=== PATIENT | female | born 1955 | race Caucasian/White ===

== ENCOUNTER 2020-05-04 18:15 | Inpatient (IN) ==
--- NOTE | 2020-05-04 18:38 | Emergency Department Note ---
History of Present Illness General Chief complaint: Chest Pain Time Seen by Provider: 05/04/20 18:18 Source: patient and family (Significant other who is at the bedside) Mode of arrival: EMS Limitations: no limitations History of Present Illness This patient comes in after having chest pain. At present, she has no chest pain. She said around 11:00 she had jaw pain she took some Advil felt better and then it came back and went into her chest and also arm so she took 6 baby aspirin and felt okay she went somewhere in her car but when she got home walked out of her car she said she walked about 10 steps and had severe pain that she describes as 20 out of 10 that lasted about 5 minutes. Nothing seems to make it better or worse she did take a hydrocodone it eventually got better. She has had no fall or trauma. She does have some ongoing issues with her right arm and did take prednisone and finished last week. She has some chronic back issues in the lower back. No shortness of breath associated she was diaphoretic no nausea vomiting. No radiation to her back. No recent illness. No fever or chills or COVID exposure no flulike symptoms. No history of similar Home Medications Home Medications Medication Instructions Recorded Confirmed Type diclofenac sodium 150 mg PO HS 01/25/19 05/04/20 History allopurinol 200 mg PO HS 05/04/20 05/04/20 History ibuprofen [Advil] 200 mg PO Q6H PRN 05/04/20 05/04/20 History Allergies Allergy/AdvReac Type Severity Reaction Status Date / Time No Known Allergies Allergy Unknown Verified 05/04/20 19:50 Past Med/Surg History Medical History Chronic back pain Degenerative disc disease Gout History of gastroesophageal reflux (GERD) Osteoarthritis Spinal stenosis Surgical History History of back surgery x 2; hardware present History of detached retina repair History of dilation and curettage History of left cataract surgery History of tubal ligation Family History Mother Family history of diabetes mellitus Social History Smoking Status: Current every day smoker Cigarettes Per Day: 1/2 PPD; Second Hand Exposure: No; Hx Alcohol Use: No Hx Substance Use: No Preferred Language: German Communication Ability: Effective 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 Beliefs That Will Affect Care: None Current Living Situation: Family Other Information That Helps Us Care for You: No Feels Safe at Home: Yes Safety Concerns: Feels Safe At This Time Review of Systems A total of 10 systems reviewed and were otherwise negative Physical Exam Vital Signs Vital Signs - 24 hr 05/04/20 18:20 05/04/20 18:24 05/04/20 18:26 Temperature 36.6 C Temperature Source Oral Pulse Rate 94 H 97 H 97 H Pulse Rate from SpO2 Sensor 97 H 97 H Respiratory Rate 16 20 19 Respiratory Effort / Characteristics Non-Labored Spontaneous Respiratory Depth Normal Respiratory Pattern Regular Blood Pressure 162/88 H 162/88 H Blood Pressure Mean 119 112 Pulse Oximetry 98 100 99 Oxygen Delivery Method Room Air Sepsis Recent Fever Within 48 Hours No Sepsis New/Unexplained Change in Mental Status No Sepsis Action Taken by Nursing No Action Required 05/04/20 18:30 05/04/20 18:31 05/04/20 18:32 Temperature Temperature Source Pulse Rate 100 H 92 H 92 H Pulse Rate from SpO2 Sensor 98 H 93 H 93 H Respiratory Rate 22 21 16 Respiratory Effort / Characteristics Respiratory Depth Respiratory Pattern Blood Pressure 131/78 Blood Pressure Mean 86 Pulse Oximetry 97 98 100 Oxygen Delivery Method Sepsis Recent Fever Within 48 Hours Sepsis New/Unexplained Change in Mental Status Sepsis Action Taken by Nursing 05/04/20 18:40 05/04/20 19:00 05/04/20 19:01 Temperature Temperature Source Pulse Rate 97 H 88 85 Pulse Rate from SpO2 Sensor 89 85 Respiratory Rate 20 20 10 L Respiratory Effort / Characteristics Respiratory Depth Respiratory Pattern Blood Pressure 134/84 Blood Pressure Mean 97 Pulse Oximetry 100 98 99 Oxygen Delivery Method Room Air Room Air Sepsis Recent Fever Within 48 Hours Sepsis New/Unexplained Change in Mental Status Sepsis Action Taken by Nursing 05/04/20 19:30 05/04/20 20:00 05/04/20 20:01 Temperature Temperature Source Pulse Rate 93 H 102 H 102 H Pulse Rate from SpO2 Sensor Respiratory Rate 18 21 21 Respiratory Effort / Characteristics Respiratory Depth Respiratory Pattern Blood Pressure 111/90 Blood Pressure Mean 104 Pulse Oximetry Oxygen Delivery Method Sepsis Recent Fever Within 48 Hours Sepsis New/Unexplained Change in Mental Status Sepsis Action Taken by Nursing 05/04/20 20:30 05/04/20 20:31 05/04/20 21:00 Temperature Temperature Source Pulse Rate 105 H 110 H 96 H Pulse Rate from SpO2 Sensor 106 H 110 H 97 H Respiratory Rate 29 H 20 16 Respiratory Effort / Characteristics Respiratory Depth Respiratory Pattern Blood Pressure 165/90 H Blood Pressure Mean 119 Pulse Oximetry 97 98 96 Oxygen Delivery Method Sepsis Recent Fever Within 48 Hours Sepsis New/Unexplained Change in Mental Status Sepsis Action Taken by Nursing 05/04/20 21:01 Temperature Temperature Source Pulse Rate 102 H Pulse Rate from SpO2 Sensor 103 H Respiratory Rate 30 H Respiratory Effort / Characteristics Respiratory Depth Respiratory Pattern Blood Pressure 144/85 H Blood Pressure Mean 111 Pulse Oximetry 98 Oxygen Delivery Method Sepsis Recent Fever Within 48 Hours Sepsis New/Unexplained Change in Mental Status Sepsis Action Taken by Nursing General: Well developed well nourished who appears in no acute distress, breathing comfortably on room air. Normal speech HEENT: Normal cephalic atraumatic. Pupils are equal round and reactive to light. Extraocular movements are intact. Oropharynx is pink with moist mucous membranes. No swelling of the mouth lips or tongue. Neck: Supple with a midline trachea. No meningeal signs or stiffness, no JVD or bruits. No Stridor. Chest: Clear to auscultation bilaterally. No wheezes or rhonchi. No increased work of breathing. Heart: Regular rate and rhythm without murmurs or gallops. Abdomen: Soft nontender, nondistended without rebound guarding or rigidity. Extremities: No cyanosis clubbing or edema. No calf tenderness or assymetry Spine/Back. Non tender to palpation. No CVA tenderness Skin: Good turgor without rashes. Neurologic exam: Cranial nerves two through 12 are intact. Motor and sensation are intact and symmetrical throughout. Course Administered Medications Discontinued Medications Lorazepam (Ativan) 0.25 mg in 0.5 mls @ 0.5 mls/min IV NOW STA Stop: 05/04/20 21:23 Last Admin: 05/04/20 21:42 Dose: 0.5 mls/min Documented by: [id number] Nicotine (Nicotine 21 Mg/24 Hr Tdsy) 21 mg TD ONE STA Stop: 05/04/20 21:26 Last Admin: 05/04/20 21:42 Dose: 21 mg Documented by: [id number] Medical Decision Making Differential Diagnosis Includes: Acute coronary syndrome, arrhythmia, PE, pneumothorax, CHF, musculoskeletal, GI, electrolyte or metabolic abnormality, pneumonia, infection, covid Medical Records Attestation: I reviewed the patient's medical records. Home Medications Current Medication List: was personally reviewed by me Laboratory Data Attestation: I reviewed the patient's lab results. Result diagrams: 05/04/20 17:53 05/04/20 17:53 Lab Results 05/04/20 05/04/20 05/04/20 Range/Units 17:53 17:53 17:53 WBC 13.86 H (4.8-10.8) K/uL RBC 3.73 L (4.2-5.4) M/uL Hgb 12.1 (12.0-16.0) g/dL Hct 36.3 L (37-47) % MCV 97.3 (80-100) fL MCH 32.4 (25-34) pg MCHC 33.3 (32-36) g/dL RDW Std Deviation 50.8 H (36.4-46.3) fL RDW Coeff of Antonio 14.2 (11.5-14.5) % Plt Count 336 (130-400) K/uL MPV 9.8 (7.4-10.4) fL Immature Gran % (Auto) 0.5 % Neut % (Auto) 69.1 % Lymph % (Auto) 22.3 % Day % (Auto) 6.8 % Eos % (Auto) 1.2 % Baso % (Auto) 0.1 % Neut # (Auto) 9.58 H (1.4-6.5) K/uL Lymph # (Auto) 3.09 (1.2-3.4) K/uL Day # (Auto) 0.94 H (0.11-0.59) K/uL Eos # (Auto) 0.16 (0-0.5) K/uL Baso # (Auto) 0.02 (0-0.2) K/uL Immature Gran # (Auto) 0.07 H (0.00-0.02) K/uL PT Cancelled INR Cancelled APTT Cancelled PTT Ratio Cancelled Sodium 138 (136-145) mmol/L Potassium 4.0 (3.5-5.1) mmol/L Chloride 106 (98-107) mmol/L Carbon Dioxide 24 (21-32) mmol/L Anion Gap 8.0 (3-11) BUN 19 H (7-18) mg/dl Creatinine 1.15 (0.6-1.2) mg/dl Est Cr Clr Drug Dosing 53.7 ml/min Est GFR ( Amer) 58.2 Est GFR (Non-Af Amer) 50.2 BUN/Creatinine Ratio 16.8 (10-20) Glucose 111 H (70-99) mg/dl Calcium 9.0 (8.5-10.1) mg/dl Magnesium (1.8-2.4) mg/dl Total Bilirubin 0.4 (0.2-1) mg/dl AST 17 (15-37) U/L ALT 28 (12-78) U/L Alkaline Phosphatase 105 (45-117) U/L Troponin I 0.419 H* (0-0.045) ng/ml Total Protein 7.7 (6.4-8.2) gm/dl Albumin 4.0 (3.4-5.0) gm/dl Globulin 3.7 (2.5-4.0) gm/dl Albumin/Globulin Ratio 1.1 (0.9-2) Lipase 353 (73-393) U/L Procalcitonin (0-0.5) ng/ml TSH (0.300-4.500) uIu/ml 05/04/20 05/04/20 05/04/20 Range/Units 17:53 19:32 21:22 WBC (4.8-10.8) K/uL RBC (4.2-5.4) M/uL Hgb (12.0-16.0) g/dL Hct (37-47) % MCV (80-100) fL MCH (25-34) pg MCHC (32-36) g/dL RDW Std Deviation (36.4-46.3) fL RDW Coeff of Antonio (11.5-14.5) % Plt Count (130-400) K/uL MPV (7.4-10.4) fL Immature Gran % (Auto) % Neut % (Auto) % Lymph % (Auto) % Day % (Auto) % Eos % (Auto) % Baso % (Auto) % Neut # (Auto) (1.4-6.5) K/uL Lymph # (Auto) (1.2-3.4) K/uL Day # (Auto) (0.11-0.59) K/uL Eos # (Auto) (0-0.5) K/uL Baso # (Auto) (0-0.2) K/uL Immature Gran # (Auto) (0.00-0.02) K/uL PT 10.0 INR 0.9 APTT 30.4 PTT Ratio 1.1 Sodium (136-145) mmol/L Potassium (3.5-5.1) mmol/L Chloride (98-107) mmol/L Carbon Dioxide (21-32) mmol/L Anion Gap (3-11) BUN (7-18) mg/dl Creatinine (0.6-1.2) mg/dl Est Cr Clr Drug Dosing ml/min Est GFR ( Amer) Est GFR (Non-Af Amer) BUN/Creatinine Ratio (10-20) Glucose (70-99) mg/dl Calcium (8.5-10.1) mg/dl Magnesium 2.3 (1.8-2.4) mg/dl Total Bilirubin (0.2-1) mg/dl AST (15-37) U/L ALT (12-78) U/L Alkaline Phosphatase (45-117) U/L Troponin I 1.120 H* (0-0.045) ng/ml Total Protein (6.4-8.2) gm/dl Albumin (3.4-5.0) gm/dl Globulin (2.5-4.0) gm/dl Albumin/Globulin Ratio (0.9-2) Lipase (73-393) U/L Procalcitonin < 0.05 (0-0.5) ng/ml TSH 1.300 (0.300-4.500) uIu/ml Imaging Data Attestation: I personally reviewed and interpreted this imaging study as follows: My Impression: No acute infiltrate, failure, pneumothorax seen on my interpretation. ECG Data Attestation: I personally reviewed and interpreted this ECG as follows: Indication: + chest pain Rate (beats per minute): 94 Rhythm: + normal sinus ECG [place]: + Normal ECG ST segments: + Nonspecific ST abnormalities ECG Findings: no PACs and no PVCs Comparison ECG Date: from (06/07/13) Change: no significant change Additional Comments: EKG #2: Normal sinus rhythm [address] and T wave abnormality. The T wave inversions in aVL and 1 look more pronounced than EKG #1. No acute ST segment elevation or depression. Note the patient is asymptomatic with this. MDM Narrative Patient comes in as described above. She was placed on a human resources records clerk room C7. she has had intermittent chest and jaw pain today. She has no cardiac hist ory. Her main risk factor is smoking history, she denies family history, diabetes, hypertension, hypercholesteremia. She is never had a cardiac work-up done. She feels well at present. She is taken aspirin prior to arrival. IV access was established. EKG, blood work was obtained. Her initial EKG does not show any definite acute ischemic changes and she is asymptomatic. Her white count is mildly elevated however she has nothing to suggest infection. She has no known exposure to COVID or COVID type symptoms. She has no sick electrolyte or metabolic abnormalities. Her troponin was elevated at 0.4. I did a second EKG, she is asymptomatic during this but I think the T wave inversions laterally do appear slightly more prominent. I do think she needs to be admitted for further treatment evaluation of consult to Dr. Goznalez. Patient was very hesitant to be admitted. She is very anxious I talked her at length multiple times as well as her significant other. I told her that is unsafe to let her go home with an elevated troponin and her symptoms I very concerned that she has had an acute cardiac event such as a heart attack or heart blockage which could lead to heart attack or or disability. She ultimately did agree to being admitted which I strongly think the right thing to do Continuous cardiac monitoring; an order was placed in the EMR for continuous cardiac monitoring. The patient was noted to be in normal sinus rhythm with a rate of 94. Impression & Plan Chest pain, Elevated troponin I level, Jaw pain, Diaphoresis, Unstable angina Discharge Plan Visit Data Chief Complaint: Chest Pain ED Provider: Cirilo Hidalgo Discharge Problem: Chest pain, Elevated troponin I level, Jaw pain, Diaphoresis, Unstable angina Patient Disposition: Admitted As Inpatient Discharge Instructions Interventions: ED Discharge Assessment Last Done: 05/04/20 21:50 Discharge Problem: Chest pain Qualifiers: Chest pain type: precordial pain Qualified Code(s): R07.2 - Precordial pain
--- NOTE | 2020-05-04 18:43 | XRay Report ---
SINGLE VIEW CHEST CLINICAL HISTORY: Atypical chest pain. FINDINGS: An AP, portable, upright chest radiograph is compared to study dated 06/07/2013. The examina tion is degraded by portable technique and patient rotation. The cardiomediastinal silhouette is un remarkable. There is mild bibasilar atelectasis. The lungs and pleural spaces are otherwise clear. No pneumothorax is seen. The skeletal structures are osteopenic. The bony thorax is grossly intact. IMPRESSION: No active disease in the chest. ACT 112: Negative or not required by law. Electronically signed by: Anshu Us M.D. 05/04/2020 6:41 PM
[2020-05-04 18:58] LABS: Basophils # (auto) 0.02 K/uL (0-0.2); Basophils % (auto) 0.1 %; Eosinophils # (auto) 0.16 K/uL (0-0.5); Eosinophils % (auto) 1.2 %; Hematocrit (blood only) 36.3 % (37-47); Hemoglobin 12.1 g/dL (12.0-16.0); Immature Granulocytes # (auto) 0.07 K/uL (0.00-0.02); Immature Granulocytes % (auto) 0.5 %; Lymphocytes # (auto) 3.09 K/uL (1.2-3.4); Lymphocytes % (auto) 22.3 %; Mean Corpuscular Hemoglobin 32.4 pg (25-34); Mean Corpuscular Hgb Conc 33.3 g/dL (32-36); Mean Corpuscular Volume 97.3 fL (80-100); Mean Platelet Volume 9.8 fL (7.4-10.4); Monocytes # (auto) 0.94 K/uL (0.11-0.59); Monocytes % (auto) 6.8 %; Neutrophils # (auto) 9.58 K/uL (1.4-6.5); Neutrophils % (auto) 69.1 %; Platelet Count 336 K/uL (130-400); RDW Coefficient of Variation 14.2 % (11.5-14.5); RDW Standard Deviation 50.8 fL (36.4-46.3); Red Blood Count 3.73 M/uL (4.2-5.4); White Blood Count 13.86 K/uL (4.8-10.8)
[2020-05-04 19:07] LABS: BUN Creatinine Ratio 16.8 (10-20); Creatinine Clr Calc Pharmacy 53.7 ml/min; Est GFR (African American) 58.2; Est GFR (Non-African American) 50.2
[2020-05-04 19:17] LABS: Albumin Globulin Ratio 1.1 (0.9-2); Bilirubin,Total 0.4 mg/dl (0.2-1); Globulin 3.7 gm/dl (2.5-4.0); Total Protein 7.7 gm/dl (6.4-8.2); Troponin I 0.419 ng/ml (0-0.045)
[2020-05-04 19:52] LABS: INR 0.9 (0.9-1.1); Partial Thromboplastin Ratio 1.1; Partial Thromboplastin Time 30.4 Seconds (21.0-31.0)
[2020-05-04] MEDS ORDERED: LORazepam 0.25 MG/0.5 ML VIAL IV STA (21:22)
--- NOTE | 2020-05-04 21:23 | History & Physical Report ---
Date of Service May 04, 2020 Assessment & Plan (1) NSTEMI (non-ST elevated myocardial infarction): Situational hypertension chronic back pain status post surgery anxiety/mood disorder, stable at home without any maintenance medications currently Hyperglycemia rule out DM ongoing tobacco abuse. PCU Aspirin, beta-yolanda; IV heparin TTE, Cardiology consult RE ACS Check lipid profile N.p.o. after midnight in anticipation of procedure Check hemoglobin A1c Anxiolytic PRN Nicotine patch DVT prophylaxis. IV heparin DNR Text document was generated using [employer] voice recognition software. It may contain grammatical or spelling errors. Kindly contact undersigned for clarification of any documentation item in question. History of Present Illness Chief Complaint: Chest pain Primary Care Provider: Mauricio Boyd PA-C History obtained from patient and records. Medical history significant for chronic back pain status post surgery, anxiety/mood disorder, gout, ongoing tobacco abuse. Last confinement June 2013 under Orthopedics service for elective back surgery. This afternoon, patient experienced chest discomfort described as heavy and burning but different from reflux while waiting in the car. Some shortness of breath and diaphoreses. Chest discomfort not affected by breathing. No prior episodes. No unusual stress at home. Patient currently helping partner move from [place] to [facility]. Patient took home aspirin. Chest pain later relieved by home Vicodin Rx. Patient consulted local urgent care center. Patient brought to ER by EMS after being notified by urgent care center. Patient currently comfortable at the ER. Initially hesitant to stay for confinement. Second troponin noted to be 1.120. 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 Allergies Allergy/AdvReac Type Severity Reaction Status Date / Time No Known Allergies Allergy Unknown Verified 05/04/20 19:50 Home Medications Home Medications Medication Instructions Recorded Confirmed Type diclofenac sodium 150 mg PO HS 01/25/19 05/04/20 History allopurinol 200 mg PO HS 05/04/20 05/04/20 History ibuprofen [Advil] 200 mg PO Q6H PRN 05/04/20 05/04/20 History Past Med/Surg History Medical History Chronic back pain Degenerative disc disease Gout History of gastroesophageal reflux (GERD) Osteoarthritis Spinal stenosis Surgical History History of back surgery x 2; hardware present History of detached retina repair History of dilation and curettage History of left cataract surgery History of tubal ligation Family History Mother Family history of diabetes mellitus Social History Smoking Status: Current every day smoker Cigarettes Per Day: 1/2 PPD; Second Hand Exposure: No; Hx Alcohol Use: No Hx Substance Use: No Preferred Language: Swedish Communication Ability: Effective Warehouse 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 Beliefs That Will Affect Care: None Current Living Situation: Family Other Information That Helps Us Care for You: No Feels Safe at Home: Yes Safety Concerns: Feels Safe At This Time Review of Systems Review of Systems: As per HPI, all 10 systems reviewed, all other ROS negative Physical Exam Physical Exam: GENERAL: Comfortable, obese, anxious, looks younger for stated age, no respiratory distress SKIN: Normal color, warm HEENT: Ozone palpebral conjunctivae, no ptosis, dry buccal mucosa NECK : Supple, short neck, no tenderness CHEST : CTA, no tenderness HEART : Tachycardic , no obvious murmurs ABDOMEN: Some distention, nontender EXTREMITIES : No LE swelling/tenderness, no other conspicuous deformities noted NEUROLOGIC : Coherent, no facial asymmetry, no other gross focality Results & Data Results & Data ([facility]) Vital Signs (Past 12 Hours) Vital Signs Temp Pulse Resp BP Pulse Ox 05/04/20 20:01 102 H 21 05/04/20 20:00 102 H 21 111/90 05/04/20 19:30 93 H 18 05/04/20 19:01 85 10 L 99 05/04/20 19:00 88 20 134/84 98 05/04/20 18:40 97 H 20 100 05/04/20 18:32 92 H 16 100 05/04/20 18:31 92 H 21 131/78 98 05/04/20 18:30 100 H 22 97 05/04/20 18:26 97 H 19 99 05/04/20 18:24 36.6 C 97 H 20 162/88 H 100 05/04/20 18:20 94 H 16 162/88 H 98 Laboratory Results Laboratory Results WBC 13.86 K/uL (4.8-10.8) H 05/04/20 17:53 RBC 3.73 M/uL (4.2-5.4) L 05/04/20 17:53 Hgb 12.1 g/dL (12.0-16.0) 05/04/20 17:53 Hct 36.3 % (37-47) L 05/04/20 17:53 MCV 97.3 fL (80-100) 05/04/20 17:53 MCH 32.4 pg (25-34) 05/04/20 17:53 MCHC 33.3 g/dL (32-36) 05/04/20 17:53 RDW Std Deviation 50.8 fL (36.4-46.3) H 05/04/20 17:53 RDW Coeff of Antonio 14.2 % (11.5-14.5) 05/04/20 17:53 Plt Count 336 K/uL (130-400) 05/04/20 17:53 MPV 9.8 fL (7.4-10.4) 05/04/20 17:53 Immature Gran % (Auto) 0.5 % 05/04/20 17:53 Neut % (Auto) 69.1 % 05/04/20 17:53 Lymph % (Auto) 22.3 % 05/04/20 17:53 [place] % (Auto) 6.8 % 05/04/20 17:53 Eos % (Auto) 1.2 % 05/04/20 17:53 Baso % (Auto) 0.1 % 05/04/20 17:53 Neut # (Auto) 9.58 K/uL (1.4-6.5) H 05/04/20 17:53 Lymph # (Auto) 3.09 K/uL (1.2-3.4) 05/04/20 17:53 [place] # (Auto) 0.94 K/uL (0.11-0.59) H 05/04/20 17:53 Eos # (Auto) 0.16 K/uL (0-0.5) 05/04/20 17:53 Baso # (Auto) 0.02 K/uL (0-0.2) 05/04/20 17:53 Immature Gran # (Auto) 0.07 K/uL (0.00-0.02) H 05/04/20 17:53 PT 10.0 Seconds (9.0-12.0) 05/04/20 19:32 INR 0.9 (0.9-1.1) 05/04/20 19:32 APTT 30.4 Seconds (21.0-31.0) 05/04/20 19:32 PTT Ratio 1.1 05/04/20 19:32 Sodium 138 mmol/L (136-145) 05/04/20 17:53 Potassium 4.0 mmol/L (3.5-5.1) 05/04/20 17:53 Chloride 106 mmol/L (98-107) 05/04/20 17:53 Carbon Dioxide 24 mmol/L (21-32) 05/04/20 17:53 Anion Gap 8.0 (3-11) 05/04/20 17:53 BUN 19 mg/dl (7-18) H 05/04/20 17:53 Creatinine 1.15 mg/dl (0.6-1.2) 05/04/20 17:53 Est Cr Clr Drug Dosing 53.7 ml/min 05/04/20 17:53 Est GFR ( Amer) 58.2 05/04/20 17:53 Est GFR (Non-Af Amer) 50.2 05/04/20 17:53 BUN/Creatinine Ratio 16.8 (10-20) 05/04/20 17:53 Glucose 111 mg/dl (70-99) H 05/04/20 17:53 Calcium 9.0 mg/dl (8.5-10.1) 05/04/20 17:53 Total Bilirubin 0.4 mg/dl (0.2-1) 05/04/20 17:53 AST 17 U/L (15-37) 05/04/20 17:53 ALT 28 U/L (12-78) 05/04/20 17:53 Alkaline Phosphatase 105 U/L (45-117) 05/04/20 17:53 Troponin I 0.419 ng/ml (0-0.045) H* 05/04/20 17:53 Total Protein 7.7 gm/dl (6.4-8.2) 05/04/20 17:53 Albumin 4.0 gm/dl (3.4-5.0) 05/04/20 17:53 Globulin 3.7 gm/dl (2.5-4.0) 05/04/20 17:53 Albumin/Globulin Ratio 1.1 (0.9-2) 05/04/20 17:53 Lipase 353 U/L (73-393) 05/04/20 17:53 Diagnostic Findings Chest x-ray : No active disease in the chest. EKG as per my interpretation : Rate 90, NSR, normal axis, T wave abnormalities lateral leads
[2020-05-04] MEDS ORDERED: NICOTINE 21 MG/24 HR TDSY TD STA (21:25)
[2020-05-04 22:06] LABS: Magnesium 2.3 mg/dl (1.8-2.4); Thyroid Stimulating Hormone 1.3 uIu/ml (0.300-4.500)
[2020-05-04 22:09] LABS: Troponin I 1.12 ng/ml (0-0.045)
[2020-05-04] MEDS ORDERED: PROMETHAZINE HCL 12.5 MG in SODIUM CHLORIDE 0.9% 50 ML IV PRN (22:25)
[2020-05-04] MEDS ORDERED: ACETAMINOPHEN 325 MG TAB PO PRN (22:25)
[2020-05-04] MEDS ORDERED: OXYCODONE HCL IR 5 MG TAB (IMMEDIATE RELEASE) PO PRN (22:25)
[2020-05-04] MEDS ORDERED: MoRPHine SULFATE 4 MG/ML 1 ML CARP\\VIAL IV PRN (22:25)
[2020-05-04] MEDS ORDERED: NITROGLYCERIN SL 0.4 MG/TAB TAB SL PRN (22:25)
[2020-05-04] MEDS ORDERED: Heparin IV Standard *NO* Bolus STA (22:30)
[2020-05-04] MEDS ORDERED: METOPROLOL TARTRATE 25 MG TAB PO SCH (22:45)
[2020-05-04] MEDS: HEPARIN SODIUM/DEXTROSE 25,000 UNITS/500 ML BAG IV SCH (23:28)
[2020-05-04] MEDS: LORazepam 0.5 MG/1 ML VIAL IV PRN (23:30)
[2020-05-05] MEDS ORDERED: SODIUM CHLORIDE 0.9% 1000ML 1,000 ML IV SCH (00:01)
[2020-05-05] MEDS: LORazepam 0.5 MG/1 ML VIAL IV PRN ×2 (05:22→23:32)
[2020-05-05 05:42] LABS: Estimated Average Glucose 143 mg/dl; Hemoglobin A1C 6.6 % (4.5-5.6)
[2020-05-05 06:20] LABS: Basophils # (auto) 0.02 K/uL (0-0.2); Basophils % (auto) 0.2 %; Eosinophils # (auto) 0.18 K/uL (0-0.5); Eosinophils % (auto) 1.5 %; Hematocrit (blood only) 35.4 % (37-47); Hemoglobin 11.7 g/dL (12.0-16.0); Immature Granulocytes # (auto) 0.05 K/uL (0.00-0.02); Immature Granulocytes % (auto) 0.4 %; Lymphocytes # (auto) 2.77 K/uL (1.2-3.4); Lymphocytes % (auto) 23.8 %; Mean Corpuscular Hemoglobin 32.6 pg (25-34); Mean Corpuscular Hgb Conc 33.1 g/dL (32-36); Mean Corpuscular Volume 98.6 fL (80-100); Mean Platelet Volume 9.9 fL (7.4-10.4); Neutrophils % (auto) 68.1 %; Platelet Count 355 K/uL (130-400); RDW Coefficient of Variation 14.2 % (11.5-14.5); Red Blood Count 3.59 M/uL (4.2-5.4); White Blood Count 11.62 K/uL (4.8-10.8)
[2020-05-05 06:26] LABS: Partial Thromboplastin Ratio 1.4; Partial Thromboplastin Time 39.1 Seconds (21.0-31.0)
[2020-05-05 06:53] LABS: BUN Creatinine Ratio 17.7 (10-20); Calcium 9.2 mg/dl (8.5-10.1); Est GFR (African American) 78.3; Est GFR (Non-African American) 67.6; Potassium 4.1 mmol/L (3.5-5.1)
[2020-05-05] MEDS ORDERED: HEPARIN IV BOLUS 5,000 UNITS in SYRINGE 0 ML IV ONE (07:00)
[2020-05-05 07:48] LABS: Troponin I 3.63 ng/ml (0-0.045)
[2020-05-05] MEDS: METOPROLOL TARTRATE 25 MG TAB PO SCH ×2 (07:50→20:29)
[2020-05-05] MEDS: ASPIRIN 81 MG ECTAB PO SCH (07:50)
--- NOTE | 2020-05-05 08:37 | Electrocardiogram Report ---
Test Reason : Blood Pressure : / mmHG Vent. Rate : 094 BPM Atrial Rate : 094 BPM P-R Int : 144 ms QRS Dur : 088 ms QT Int : 376 ms P-R-T Axes : 049 069 112 degrees QTc Int : 470 ms Poor data quality, interpretation may be adversely affected Normal sinus rhythm Nonspecific T wave abnormality Lateral leads When compared with ECG of 07-JUN-2013 15:52, Nonspecific T wave abnormality Lateral leads now present Otherwise no significant change Confirmed by Girish Cunha ([id number]) on 05/05/2020 8:37:03 AM Referred By: REFERRED SELF Confirmed By:Girish Cunha
--- NOTE | 2020-05-05 08:38 | Electrocardiogram Report ---
Test Reason : Blood Pressure : / mmHG Vent. Rate : 089 BPM Atrial Rate : 089 BPM P-R Int : 152 ms QRS Dur : 080 ms QT Int : 418 ms P-R-T Axes : 050 071 162 degrees QTc Int : 508 ms Normal sinus rhythm Nonspecific T wave abnormality Lateral leads Abnormal ECG When compared with ECG of 04-MAY-2020 19:38, No significant change Confirmed by Girish Cunha ([id number]) on 05/05/2020 8:37:41 AM Referred By: REFERRED SELF Confirmed By:Girish Cunha
[2020-05-05] MEDS ORDERED: ENOXAPARIN INJ 40 MG/0.4 ML SYR SQ SCH (09:00)
--- NOTE | 2020-05-05 09:07 | Hospitalist Progress Note ---
Date of Service May 05, 2020 Assessment & Plan (1) NSTEMI (non-ST elevated myocardial infarction): Situational hypertension Admitted to PCU Aspirin, beta-yolanda; IV heparin TTE, Cardiology consult RE ACS N.p.o. after midnight in anticipation of procedure Troponin increased from 1.2 to 3.6 this morning Echocardiogram shows normal LV chamber size with mild concentric LVH. Low normal LV systolic function EF 50 to 55%. Mild to moderate hypokinesis of the basal and mid inferior/inferior lateral jones, otherwise normal wall motion. Grade 1 diastolic dysfunction. No significant valvular pathology. Cardiology recommends cardiac cath Patient initially very hesitant, however after further discussion with her and her niece, her POA, patient agrees to proceed with cardiac cath Hyperglycemia rule out DM A1c 6.6%, patient to follow-up as outpatient with PCP Lipid profile checked, total cholesterol 252, triglycerides 392, LDL 153, HDL 21 Anxiety/mood disorder, stable at home without any maintenance medications currently Anxiolytic PRN Ongoing tobacco use Nicotine patch Counseled patient on smoking cessation Chronic back pain status post surgery Currently no complaints, continue to monitor DVT prophylaxis. IV heparin DNR -reversed DNR for cardiac cath procedure, she wishes to be DNR after procedure Admission and Anticipated Discharge Date Admission Date: May 04, 2020 Subjective Patient presented with chest pain, elevated troponin, - NSTEMI. Echocardiogram obtained. She was seen by cardiology, cardiac cath recommended. Initially patient was hesitant about cardiac cath, also wanted to keep her DNR status. After further discussion however with the patient and also her niece who is her POA, patient agreed to proceed with cardiac catheterization. Currently patient is sitting up in bed, in no acute respiratory distress, denies chest pain, palpitations, fevers chills, abdominal pain, nausea or vomiting. She is on IV heparin. Review of Systems Review of Systems: All systems reviewed & are unremarkable except as noted in HPI & below Constitutional: no fever and no chills Respiratory: no cough and no dyspnea Cardiovascular: no chest pain and no palpitations Gastrointestinal: no abdominal pain, no nausea and no vomiting Physical Exam Physical Exam: GENERAL: obese female sitting up in bed, somewhat anxious, in no respiratory distress SKIN: warm, dry HEENT: Normocephalic, atraumatic, EOMI, [place] palpebral conjunctivae, no ptosis NECK : Supple, short neck, no tenderness CHEST : CTA, no wheezing, rhonchi or crackles HEART : RRR , no obvious murmurs ABDOMEN: Normal bowel sounds, obese, soft, some distention, nontender EXTREMITIES : No LE swelling/tenderness, moves extremities spontaneously NEURO/PSYCH : Alert and oriented x3, answering questions appropriately, somewhat anxious, no facial asymmetry, speech fluent, moves all 4 extremities spontaneously and without difficulty Results & Data Results & Data ([facility]) Vital Signs (Past 12 Hours) Vital Signs Temp Pulse Pulse Resp BP BP Pulse Ox 05/05/20 07:51 36.8 C 79 17 112/67 97 05/05/20 03:35 36.8 C 90 16 145/84 H 96 05/04/20 23:30 102 H 05/04/20 23:26 36.6 C 102 H 20 141/93 H 94 05/04/20 22:01 37.1 C 98 H 18 135/57 L 97 05/04/20 21:46 125/73 05/04/20 21:45 93 H 31 H Laboratory Results 05/05/20 05/05/20 05/05/20 Range/Units 05:29 05:29 05:29 WBC 11.62 H (4.8-10.8) K/uL RBC 3.59 L (4.2-5.4) M/uL Hgb 11.7 L (12.0-16.0) g/dL Hct 35.4 L (37-47) % MCV 98.6 (80-100) fL MCH 32.6 (25-34) pg MCHC 33.1 (32-36) g/dL RDW Std Deviation 51.0 H (36.4-46.3) fL RDW Coeff of Antonio 14.2 (11.5-14.5) % Plt Count 355 (130-400) K/uL MPV 9.9 (7.4-10.4) fL Immature Gran % (Auto) 0.4 % Neut % (Auto) 68.1 % Lymph % (Auto) 23.8 % [place] % (Auto) 6.0 % Eos % (Auto) 1.5 % Baso % (Auto) 0.2 % Neut # (Auto) 7.90 H (1.4-6.5) K/uL Lymph # (Auto) 2.77 (1.2-3.4) K/uL [place] # (Auto) 0.70 H (0.11-0.59) K/uL Eos # (Auto) 0.18 (0-0.5) K/uL Baso # (Auto) 0.02 (0-0.2) K/uL Immature Gran # (Auto) 0.05 H (0.00-0.02) K/uL PT INR APTT 39.1 H PTT Ratio 1.4 Sodium 140 (136-145) mmol/L Potassium 4.1 (3.5-5.1) mmol/L Chloride 109 H (98-107) mmol/L Carbon Dioxide 25 (21-32) mmol/L Anion Gap 6.0 (3-11) BUN 16 (7-18) mg/dl Creatinine 0.90 (0.6-1.2) mg/dl Est Cr Clr Drug Dosing 65.0 ml/min Est GFR ( Amer) 78.3 Est GFR (Non-Af Amer) 67.6 BUN/Creatinine Ratio 17.7 (10-20) Glucose 116 H (70-99) mg/dl Estimat Average Glucose mg/dl Hemoglobin A1c (4.5-5.6) % Calcium 9.2 (8.5-10.1) mg/dl Magnesium (1.8-2.4) mg/dl Total Bilirubin (0.2-1) mg/dl AST (15-37) U/L ALT (12-78) U/L Alkaline Phosphatase (45-117) U/L Troponin I 3.630 H* (0-0.045) ng/ml Total Protein (6.4-8.2) gm/dl Albumin (3.4-5.0) gm/dl Globulin (2.5-4.0) gm/dl Albumin/Globulin Ratio (0.9-2) Triglycerides 392 H (0-150) mg/dl Cholesterol 252 H (0-200) mg/dl LDL Cholesterol, Calc 153 mg/dl VLDL Cholesterol, Calc 78 mg/dl HDL Cholesterol 21 mg/dl Cholesterol/HDL Ratio 12 Lipase (73-393) U/L Procalcitonin (0-0.5) ng/ml TSH (0.300-4.500) uIu/ml 05/04/20 05/04/20 05/04/20 Range/Units 21:22 19:32 17:53 WBC (4.8-10.8) K/uL RBC (4.2-5.4) M/uL Hgb (12.0-16.0) g/dL Hct (37-47) % MCV (80-100) fL MCH (25-34) pg MCHC (32-36) g/dL RDW Std Deviation (36.4-46.3) fL RDW Coeff of Antonio (11.5-14.5) % Plt Count (130-400) K/uL MPV (7.4-10.4) fL Immature Gran % (Auto) % Neut % (Auto) % Lymph % (Auto) % [place] % (Auto) % Eos % (Auto) % Baso % (Auto) % Neut # (Auto) (1.4-6.5) K/uL Lymph # (Auto) (1.2-3.4) K/uL [place] # (Auto) (0.11-0.59) K/uL Eos # (Auto) (0-0.5) K/uL Baso # (Auto) (0-0.2) K/uL Immature Gran # (Auto) (0.00-0.02) K/uL PT 10.0 INR 0.9 APTT 30.4 PTT Ratio 1.1 Sodium (136-145) mmol/L Potassium (3.5-5.1) mmol/L Chloride (98-107) mmol/L Carbon Dioxide (21-32) mmol/L Anion Gap (3-11) BUN (7-18) mg/dl Creatinine (0.6-1.2) mg/dl Est Cr Clr Drug Dosing ml/min Est GFR ( Amer) Est GFR (Non-Af Amer) BUN/Creatinine Ratio (10-20) Glucose (70-99) mg/dl Estimat Average Glucose mg/dl Hemoglobin A1c (4.5-5.6) % Calcium (8.5-10.1) mg/dl Magnesium 2.3 (1.8-2.4) mg/dl Total Bilirubin (0.2-1) mg/dl AST (15-37) U/L ALT (12-78) U/L Alkaline Phosphatase (45-117) U/L Troponin I 1.120 H* (0-0.045) ng/ml Total Protein (6.4-8.2) gm/dl Albumin (3.4-5.0) gm/dl Globulin (2.5-4.0) gm/dl Albumin/Globulin Ratio (0.9-2) Triglycerides (0-150) mg/dl Cholesterol (0-200) mg/dl LDL Cholesterol, Calc mg/dl VLDL Cholesterol, Calc mg/dl HDL Cholesterol mg/dl Cholesterol/HDL Ratio Lipase (73-393) U/L Procalcitonin < 0.05 (0-0.5) ng/ml TSH 1.300 (0.300-4.500) uIu/ml 05/04/20 05/04/20 05/04/20 Range/Units 17:53 17:53 17:53 WBC (4.8-10.8) K/uL RBC (4.2-5.4) M/uL Hgb (12.0-16.0) g/dL Hct (37-47) % MCV (80-100) fL MCH (25-34) pg MCHC (32-36) g/dL RDW Std Deviation (36.4-46.3) fL RDW Coeff of Antonio (11.5-14.5) % Plt Count (130-400) K/uL MPV (7.4-10.4) fL Immature Gran % (Auto) % Neut % (Auto) % Lymph % (Auto) % [place] % (Auto) % Eos % (Auto) % Baso % (Auto) % Neut # (Auto) (1.4-6.5) K/uL Lymph # (Auto) (1.2-3.4) K/uL [place] # (Auto) (0.11-0.59) K/uL Eos # (Auto) (0-0.5) K/uL Baso # (Auto) (0-0.2) K/uL Immature Gran # (Auto) (0.00-0.02) K/uL PT Cancelled INR Cancelled APTT Cancelled PTT Ratio Cancelled Sodium 138 (136-145) mmol/L Potassium 4.0 (3.5-5.1) mmol/L Chloride 106 (98-107) mmol/L Carbon Dioxide 24 (21-32) mmol/L Anion Gap 8.0 (3-11) BUN 19 H (7-18) mg/dl Creatinine 1.15 (0.6-1.2) mg/dl Est Cr Clr Drug Dosing 53.7 ml/min Est GFR ( Amer) 58.2 Est GFR (Non-Af Amer) 50.2 BUN/Creatinine Ratio 16.8 (10-20) Glucose 111 H (70-99) mg/dl Estimat Average Glucose 143 mg/dl Hemoglobin A1c 6.6 H (4.5-5.6) % Calcium 9.0 (8.5-10.1) mg/dl Magnesium (1.8-2.4) mg/dl Total Bilirubin 0.4 (0.2-1) mg/dl AST 17 (15-37) U/L ALT 28 (12-78) U/L Alkaline Phosphatase 105 (45-117) U/L Troponin I 0.419 H* (0-0.045) ng/ml Total Protein 7.7 (6.4-8.2) gm/dl Albumin 4.0 (3.4-5.0) gm/dl Globulin 3.7 (2.5-4.0) gm/dl Albumin/Globulin Ratio 1.1 (0.9-2) Triglycerides (0-150) mg/dl Cholesterol (0-200) mg/dl LDL Cholesterol, Calc mg/dl VLDL Cholesterol, Calc mg/dl HDL Cholesterol mg/dl Cholesterol/HDL Ratio Lipase 353 (73-393) U/L Procalcitonin (0-0.5) ng/ml TSH (0.300-4.500) uIu/ml 05/04/20 Range/Units 17:53 WBC 13.86 H (4.8-10.8) K/uL RBC 3.73 L (4.2-5.4) M/uL Hgb 12.1 (12.0-16.0) g/dL Hct 36.3 L (37-47) % MCV 97.3 (80-100) fL MCH 32.4 (25-34) pg MCHC 33.3 (32-36) g/dL RDW Std Deviation 50.8 H (36.4-46.3) fL RDW Coeff of Antonio 14.2 (11.5-14.5) % Plt Count 336 (130-400) K/uL MPV 9.8 (7.4-10.4) fL Immature Gran % (Auto) 0.5 % Neut % (Auto) 69.1 % Lymph % (Auto) 22.3 % [place] % (Auto) 6.8 % Eos % (Auto) 1.2 % Baso % (Auto) 0.1 % Neut # (Auto) 9.58 H (1.4-6.5) K/uL Lymph # (Auto) 3.09 (1.2-3.4) K/uL [place] # (Auto) 0.94 H (0.11-0.59) K/uL Eos # (Auto) 0.16 (0-0.5) K/uL Baso # (Auto) 0.02 (0-0.2) K/uL Immature Gran # (Auto) 0.07 H (0.00-0.02) K/uL PT INR APTT PTT Ratio Sodium (136-145) mmol/L Potassium (3.5-5.1) mmol/L Chloride (98-107) mmol/L Carbon Dioxide (21-32) mmol/L Anion Gap (3-11) BUN (7-18) mg/dl Creatinine (0.6-1.2) mg/dl Est Cr Clr Drug Dosing ml/min Est GFR ( Amer) Est GFR (Non-Af Amer) BUN/Creatinine Ratio (10-20) Glucose (70-99) mg/dl Estimat Average Glucose mg/dl Hemoglobin A1c (4.5-5.6) % Calcium (8.5-10.1) mg/dl Magnesium (1.8-2.4) mg/dl Total Bilirubin (0.2-1) mg/dl AST (15-37) U/L ALT (12-78) U/L Alkaline Phosphatase (45-117) U/L Troponin I (0-0.045) ng/ml Total Protein (6.4-8.2) gm/dl Albumin (3.4-5.0) gm/dl Globulin (2.5-4.0) gm/dl Albumin/Globulin Ratio (0.9-2) Triglycerides (0-150) mg/dl Cholesterol (0-200) mg/dl LDL Cholesterol, Calc mg/dl VLDL Cholesterol, Calc mg/dl HDL Cholesterol mg/dl Cholesterol/HDL Ratio Lipase (73-393) U/L Procalcitonin (0-0.5) ng/ml TSH (0.300-4.500) uIu/ml Medications Administered Current Inpatient Medications Acetaminophen (Acetaminophen 325 Mg Tab) 650 mg PO Q4H PRN PRN Reason: Pain or Fever Stop: 06/03/20 22:24 Allopurinol (Allopurinol 100 Mg Tab) 200 mg PO HS [facility] Stop: 06/04/20 20:59 Aspirin (Aspirin 81 Mg Ectab) 81 mg PO QAM [facility] Stop: 06/04/20 08:59 Last Admin: 05/05/20 07:50 Dose: 81 mg Documented by: Lorazepam (Ativan) 0.5 mg in 1 mls @ 1 mls/min IV Q4H PRN PRN Reason: Anxiety/Agitation Stop: 06/03/20 20:33 Last Admin: 05/05/20 05:22 Dose: 1 mls/min Documented by: Sodium Chloride (Nss 1000ml) 1,000 mls @ 50 mls/hr IV .Q20H [facility] Stop: 06/04/20 00:00 Last Admin: 05/04/20 23:41 Dose: 50 mls/hr Documented by: Promethazine HCl 12.5 mg/ (Sodium Chloride) 50.5 mls @ 202 mls/hr IV Q6H PRN PRN Reason: Nausea And Vomiting Stop: 06/03/20 22:24 Heparin Sodium/Dextrose (Heparin Sodium/Dextrose) 25,000 units in 500 mls @ 28 mls/hr IV .[id number] [facility]; Protocol Stop: 06/03/20 22:29 Last Titration: 05/05/20 07:08 Dose: 1,400 units/hr, 28 mls/hr Documented by: Metoprolol Tartrate (Metoprolol Tartrate 25 Mg Tab) 25 mg PO BID [facility] Stop: 06/04/20 08:59 Last Admin: 05/05/20 07:50 Dose: 25 mg Documented by: Miscellaneous (Remove Nicoderm Patch) 1 ea N/A DAILY@0859 [facility] Stop: 06/04/20 08:58 Last Admin: 05/05/20 07:53 Dose: 1 ea Documented by: Morphine Sulfate (Morphine Sulfate 4 Mg/Ml 1 Ml Carp\Vial) 4 mg IV Q4H PRN PRN Reason: Pain Stop: 05/18/20 22:24 Nicotine (Nicotine 21 Mg/24 Hr Tdsy) 21 mg TD QAM [facility] Stop: 06/04/20 08:59 Nitroglycerin (Nitroglycerin Sl 0.4 Mg/Tab Tab) 0.4 mg SL UD PRN PRN Reason: Chest Pain Stop: 06/03/20 22:24 Oxycodone HCl (Oxycodone Hcl Ir 5 Mg Tab (Immediate Release)) 5 mg PO Q4H PRN PRN Reason: Pain Stop: 05/18/20 22:24
--- NOTE | 2020-05-05 09:26 | Cardiology Consultation ---
Date of Consultation May 05, 2020 Assessment & Plan (1) Chest pain: (2) NSTEMI (non-ST elevated myocardial infarction): (3) Smoker: (4) Diabetes: The patient has a history of anxiety and is very emotional during my discussion with her. At this point she is refusing the cardiac catheterization. She admits that she is frightened of the procedure. I explained to her the risk of not having a cardiac catheterization including extension of her myocardial infarction and possible . She would like to be treated with medications and possibly go home today. I explained to her that would not be a good idea for the same reasons of possibly having a larger myocardial infarction and potentially heart damage or . Unless the patient is fully committed and consented for the heart catheterization we would not proceed. May be the patient should be seen by psychiatry or palliative care so she fully understands goals of treatment versus no treatment at all. At this point she is also made herself a DNR which would have to be reversed for the procedure. Addendum: After discussion with the hospitalist and floor nurse, as well as her niece (CHRISTOPHER) who is also a nurse, she is now willing to proceed with the cardiac catheterization. The patient will have her DNR reversed during the procedure and then if she wishes after the procedure it can be reinstated. She understands the risk, benefit and intent of the procedure and is willing to proceed. History of Present Illness Attending Physician: Ever Luther MD History of Present Illness This is a 64-year-old female with no prior history of heart disease. She is a smoker and a phase 0 diabetic. She was in her usual state of health yesterday and had a sudden onset of chest pain which lasted for an hour or 2 and she presented to the emergency department. After given treatment there her chest pain spontaneously resolved. She had no acute changes on her EKG however, her cardiac troponin has increased to 3 after admission. She has been pain-free since her admission. She has no ongoing complaints however, she is extremely emotional and admits to having a history of anxiety. She is frightened of any procedures especially heart catheterization. She has made herself a DNR and wants no advanced medical care. At this point she is interested in medical therapy and going home. Allergies Allergy/AdvReac Type Severity Reaction Status Date / Time No Known Allergies Allergy Unknown Verified 05/04/20 19:50 Home Medications Home Medications Medication Instructions Recorded Confirmed Type diclofenac sodium 150 mg PO HS 01/25/19 05/04/20 History allopurinol 200 mg PO HS 05/04/20 05/04/20 History ibuprofen [Advil] 200 mg PO Q6H PRN 05/04/20 05/04/20 History Patient History Medical History Chronic back pain Degenerative disc disease Gout History of gastroesophageal reflux (GERD) Osteoarthritis Spinal stenosis Surgical History History of back surgery x 2; hardware present History of detached retina repair History of dilation and curettage History of left cataract surgery History of tubal ligation Family History Mother Family history of diabetes mellitus Social History Smoking Status: Current every day smoker Cigarettes Per Day: 1/2 PPD; Second Hand Exposure: No; Hx Alcohol Use: No Hx Substance Use: No Preferred Language: Belarusian Communication Ability: Effective Warp Tying Machine Tender Required: No Beliefs That Will Affect Care: None Current Living Situation: Family Other Information That Helps Us Care for You: No Feels Safe at Home: Yes Safety Concerns: Feels Safe At This Time Review of Systems Review of Systems: All systems reviewed & are unremarkable except as noted in HPI & below Nothing additional to add. Physical Exam Physical Exam: General: no acute distress and stated age Head: normocephalic, no masses, lesions, tenderness or abnormalities Eyes: conjunctiva are pink and non-injected, sclera clear Neck: supple, no adenopathy, no bruits, normal jugular venous pulse, no he patojugular reflux Chest: normal shape and normal respiratory effort Lungs: clear to auscultation and percussion Cardiac Exam: - regular rate & rhythm, no murmurs gallops or rubs - normal S1, normal S2 Pulses: 2(+) throughout Abdomen: abdomen soft, non-tender, no abnormal masses and no hepatosplenomegaly Musculoskeletal: no gait disturbance, no joint inflammation, no deforming arthritis Extremities: no edema and no cyanosis Neuro: grossly normal exam Results & Data ([facility]) Vital Signs (Past 12 Hours) Vital Signs Temp Pulse Pulse Resp BP BP Pulse Ox 05/05/20 07:51 36.8 C 79 17 112/67 97 05/05/20 03:35 36.8 C 90 16 145/84 H 96 05/04/20 23:30 102 H 05/04/20 23:26 36.6 C 102 H 20 141/93 H 94 05/04/20 22:01 37.1 C 98 H 18 135/57 L 97 05/04/20 21:46 125/73 05/04/20 21:45 93 H 31 H Laboratory Results Current Inpatient Medications Acetaminophen (Acetaminophen 325 Mg Tab) 650 mg PO Q4H PRN PRN Reason: Pain or Fever Stop: 06/03/20 22:24 Allopurinol (Allopurinol 100 Mg Tab) 200 mg PO HS [facility] Stop: 06/04/20 20:59 Aspirin (Aspirin 81 Mg Ectab) 81 mg PO QAM [facility] Stop: 06/04/20 08:59 Last Admin: 05/05/20 07:50 Dose: 81 mg Documented by: Lorazepam (Ativan) 0.5 mg in 1 mls @ 1 mls/min IV Q4H PRN PRN Reason: Anxiety/Agitation Stop: 06/03/20 20:33 Last Admin: 05/05/20 05:22 Dose: 1 mls/min Documented by: Sodium Chloride (Nss 1000ml) 1,000 mls @ 50 mls/hr IV .Q20H [facility] Stop: 06/04/20 00:00 Last Admin: 05/04/20 23:41 Dose: 50 mls/hr Documented by: Promethazine HCl 12.5 mg/ (Sodium Chloride) 50.5 mls @ 202 mls/hr IV Q6H PRN PRN Reason: Nausea And Vomiting Stop: 06/03/20 22:24 Heparin Sodium/Dextrose (Heparin Sodium/Dextrose) 25,000 units in 500 mls @ 28 mls/hr IV .[id number] [facility]; Protocol Stop: 06/03/20 22:29 Last Titration: 05/05/20 07:08 Dose: 1,400 units/hr, 28 mls/hr Documented by: Metoprolol Tartrate (Metoprolol Tartrate 25 Mg Tab) 25 mg PO BID [facility] Stop: 06/04/20 08:59 Last Admin: 05/05/20 07:50 Dose: 25 mg Documented by: Miscellaneous (Remove Nicoderm Patch) 1 ea N/A DAILY@0859 [facility] Stop: 06/04/20 08:58 Last Admin: 05/05/20 07:53 Dose: 1 ea Documented by: Morphine Sulfate (Morphine Sulfate 4 Mg/Ml 1 Ml Carp\Vial) 4 mg IV Q4H PRN PRN Reason: Pain Stop: 05/18/20 22:24 Nicotine (Nicotine 21 Mg/24 Hr Tdsy) 21 mg TD QAM [facility] Stop: 06/04/20 08:59 Nitroglycerin (Nitroglycerin Sl 0.4 Mg/Tab Tab) 0.4 mg SL UD PRN PRN Reason: Chest Pain Stop: 06/03/20 22:24 Oxycodone HCl (Oxycodone Hcl Ir 5 Mg Tab (Immediate Release)) 5 mg PO Q4H PRN PRN Reason: Pain Stop: 05/18/20 22:24 Medications Administered Laboratory Results - last 24 hr 05/04/20 05/04/20 05/04/20 17:53 17:53 17:53 WBC 13.86 H RBC 3.73 L Hgb 12.1 Hct 36.3 L MCV 97.3 MCH 32.4 MCHC 33.3 RDW Std Deviation 50.8 H RDW Coeff of Antonio 14.2 Plt Count 336 MPV 9.8 Immature Gran % (Auto) 0.5 Neut % (Auto) 69.1 Lymph % (Auto) 22.3 [place] % (Auto) 6.8 Eos % (Auto) 1.2 Baso % (Auto) 0.1 Neut # (Auto) 9.58 H Lymph # (Auto) 3.09 [place] # (Auto) 0.94 H Eos # (Auto) 0.16 Baso # (Auto) 0.02 Immature Gran # (Auto) 0.07 H PT Cancelled INR Cancelled APTT Cancelled PTT Ratio Cancelled Sodium 138 Potassium 4.0 Chloride 106 Carbon Dioxide 24 Anion Gap 8.0 BUN 19 H Creatinine 1.15 Est Cr Clr Drug Dosing 53.7 Est GFR ( Amer) 58.2 Est GFR (Non-Af Amer) 50.2 BUN/Creatinine Ratio 16.8 Glucose 111 H Estimat Average Glucose Hemoglobin A1c Calcium 9.0 Magnesium Total Bilirubin 0.4 AST 17 ALT 28 Alkaline Phosphatase 105 Troponin I 0.419 H* Total Protein 7.7 Albumin 4.0 Globulin 3.7 Albumin/Globulin Ratio 1.1 Triglycerides Cholesterol LDL Cholesterol, Calc VLDL Cholesterol, Calc HDL Cholesterol Cholesterol/HDL Ratio Lipase 353 Procalcitonin TSH 05/04/20 05/04/20 05/04/20 17:53 17:53 19:32 WBC RBC Hgb Hct MCV MCH MCHC RDW Std Deviation RDW Coeff of Antonio Plt Count MPV Immature Gran % (Auto) Neut % (Auto) Lymph % (Auto) [place] % (Auto) Eos % (Auto) Baso % (Auto) Neut # (Auto) Lymph # (Auto) [place] # (Auto) Eos # (Auto) Baso # (Auto) Immature Gran # (Auto) PT 10.0 INR 0.9 APTT 30.4 PTT Ratio 1.1 Sodium Potassium Chloride Carbon Dioxide Anion Gap BUN Creatinine Est Cr Clr Drug Dosing Est GFR ( Amer) Est GFR (Non-Af Amer) BUN/Creatinine Ratio Glucose Estimat Average Glucose 143 Hemoglobin A1c 6.6 H Calcium Magnesium Total Bilirubin AST ALT Alkaline Phosphatase Troponin I Total Protein Albumin Globulin Albumin/Globulin Ratio Triglycerides Cholesterol LDL Cholesterol, Calc VLDL Cholesterol, Calc HDL Cholesterol Cholesterol/HDL Ratio Lipase Procalcitonin < 0.05 TSH 05/04/20 05/05/20 05/05/20 21:22 05:29 05:29 WBC 11.62 H RBC 3.59 L Hgb 11.7 L Hct 35.4 L MCV 98.6 MCH 32.6 MCHC 33.1 RDW Std Deviation 51.0 H RDW Coeff of Antonio 14.2 Plt Count 355 MPV 9.9 Immature Gran % (Auto) 0.4 Neut % (Auto) 68.1 Lymph % (Auto) 23.8 [place] % (Auto) 6.0 Eos % (Auto) 1.5 Baso % (Auto) 0.2 Neut # (Auto) 7.90 H Lymph # (Auto) 2.77 [place] # (Auto) 0.70 H Eos # (Auto) 0.18 Baso # (Auto) 0.02 Immature Gran # (Auto) 0.05 H PT INR APTT PTT Ratio Sodium 140 Potassium 4.1 Chloride 109 H Carbon Dioxide 25 Anion Gap 6.0 BUN 16 Creatinine 0.90 Est Cr Clr Drug Dosing 65.0 Est GFR ( Amer) 78.3 Est GFR (Non-Af Amer) 67.6 BUN/Creatinine Ratio 17.7 Glucose 116 H Estimat Average Glucose Hemoglobin A1c Calcium 9.2 Magnesium 2.3 Total Bilirubin AST ALT Alkaline Phosphatase Troponin I 1.120 H* 3.630 H* Total Protein Albumin Globulin Albumin/Globulin Ratio Triglycerides 392 H Cholesterol 252 H LDL Cholesterol, Calc 153 VLDL Cholesterol, Calc 78 HDL Cholesterol 21 Cholesterol/HDL Ratio 12 Lipase Procalcitonin TSH 1.300 05/05/20 05:29 WBC RBC Hgb Hct MCV MCH MCHC RDW Std Deviation RDW Coeff of Antonio Plt Count MPV Immature Gran % (Auto) Neut % (Auto) Lymph % (Auto) [place] % (Auto) Eos % (Auto) Baso % (Auto) Neut # (Auto) Lymph # (Auto) [place] # (Auto) Eos # (Auto) Baso # (Auto) Immature Gran # (Auto) PT INR APTT 39.1 H PTT Ratio 1.4 Sodium Potassium Chloride Carbon Dioxide Anion Gap BUN Creatinine Est Cr Clr Drug Dosing Est GFR ( Amer) Est GFR (Non-Af Amer) BUN/Creatinine Ratio Glucose Estimat Average Glucose Hemoglobin A1c Calcium Magnesium Total Bilirubin AST ALT Alkaline Phosphatase Troponin I Total Protein Albumin Globulin Albumin/Globulin Ratio Triglycerides Cholesterol LDL Cholesterol, Calc VLDL Cholesterol, Calc HDL Cholesterol Cholesterol/HDL Ratio Lipase Procalcitonin TSH (1) Diabetes Diabetes mellitus complication status: with circulatory complication Diabetes mellitus group home insulin use: without watermelon harvesting supervisor use Diabetes mellitus type: type 2 (2) Chest pain Chest pain type: precordial pain Qualified Code(s): R07.2 - Precordial pain
--- NOTE | 2020-05-05 09:31 | Electrocardiogram Report ---
Test Reason : Blood Pressure : / mmHG Vent. Rate : 090 BPM Atrial Rate : 090 BPM P-R Int : 146 ms QRS Dur : 086 ms QT Int : 386 ms P-R-T Axes : 046 065 148 degrees QTc Int : 472 ms Normal sinus rhythm Nonspecific T wave abnormality Lateral leads Prolonged QT Abnormal ECG When compared with ECG of 04-MAY-2020 18:24, No significant change Confirmed by Girish Cunha ([id number]) on 05/05/2020 9:30:41 AM Referred By: REFERRED SELF Confirmed By:Girish Cunha
[2020-05-05] MEDS: NICOTINE 21 MG/24 HR TDSY TD SCH (09:35)
[2020-05-05] MEDS ORDERED: fentaNYL citrate 100 MCG/2 ML VIAL ONE (10:12)
[2020-05-05] MEDS ORDERED: NiCARDipine HCL INJ 2.5 MG/ML 10 ML AMP ONE (10:12)
[2020-05-05] MEDS ORDERED: HEPARIN (PORCINE) 1000 UNIT/ML 10 ML (CATH LAB USE ONLY) ONE (10:12)
[2020-05-05] MEDS ORDERED: MIDAZOLAM HCL 1 MG/ML 2ML VIAL ONE (10:12)
[2020-05-05] MEDS ORDERED: NITROGLYCERIN/D5W 100MCG/ML 20ML SYR ONE (10:13)
--- NOTE | 2020-05-05 11:01 | Cardiac Catheterization ---
Date of Service May 05, 2020 Cardiac Cath Report Cardiac Cath Report Procedure: 1. Left heart catheterization 2. Coronary angiography 3. Left ventriculogram History: The patient is a 64-year-old female who presented with chest pain and a non- STEMI. She has a history of cigarette smoking and diabetes. Procedure summary: After informed consent was obtained the patient was taken to cardiac catheterization lab where access was obtained using a retrograde Salinger technique from the right radial artery. Preformed 5 Bahamian diagnostic catheters were utilized for the coronary angiograms. A 5 Bahamian pigtail catheter was utilized for the left ventriculogram and left heart pressures. Following the procedure the patient was returned to her room in stable condition. ACC data: Start time 10:21 AM End time 10:41 AM Opening aortic pressure 112/63 Closing aortic pressure 127/64 LV pressure 127/21 Sedation Versed 2 mg IV IV fluid 26 cc normal saline Contrast 97 cc VISI Fluoroscopy time 2.4 minutes Radiation 707 mGy DAP 52.85 cGy/m Right dominant system AUC score 9 Coronary angiography: Injections into the left coronary artery revealed the left main trunk to be patent. The left circumflex artery has a skip lesion of approximately a centimeter in its mid segment with the remainder of the left circumflex artery filling by bridging as well as left to left collaterals distally. There is a large first and second marginal branch which are patent. The LAD is diffusely diseased in its proximal and mid segment reaching 70 to 80% at the bifurcation of a large diagonal there is a 90% stenosis of the LAD. The diagonal was patent. Injections into the right coronary artery reveal a 70% stenoses in the mid segment. The right coronary artery is dominant. Left ventriculogram: The left ventricle is of normal size. Systolic function appears to be preserved with an estimated left ventricular ejection fraction of 50 to 60%. The mitral valve is competent. The aortic root and ascending aorta have normal morphology and diameter. Summary: The patient has severe three-vessel coronary artery disease which is best treated with open heart surgery and bypass. Recommendations: The patient's films were reviewed by myself and the braid pattern setter and we both agree that she is best treated with open heart surgery and bypass. I will make arrangements for her to be seen at [facility] in [place].
[2020-05-05] MEDS: SODIUM CHLORIDE 0.9% 1000ML 1,000 ML IV SCH (11:30)
[2020-05-05 14:30] LABS: Partial Thromboplastin Time 28.8 Seconds (21.0-31.0)
[2020-05-05] MEDS ORDERED: allopurinoL 100 MG TAB PO SCH (21:00)
[2020-05-05] MEDS: HEPARIN SODIUM/DEXTROSE 25,000 UNITS/500 ML BAG IV SCH (22:21)
[2020-05-06 00:49] LABS: Partial Thromboplastin Ratio 1.5; Partial Thromboplastin Time 41.4 Seconds (21.0-31.0)
[2020-05-06] MEDS ORDERED: HEPARIN IV BOLUS 3,000 UNITS in SYRINGE 0 ML IV ONE (01:45)
[2020-05-06] MEDS: SODIUM CHLORIDE 0.9% 1000ML 1,000 ML IV SCH (01:47)
[2020-05-06] MEDS: HEPARIN SODIUM/DEXTROSE 25,000 UNITS/500 ML BAG IV SCH (07:17)
[2020-05-06 07:53] LABS: Hematocrit (blood only) 32.6 % (37-47); Mean Corpuscular Hemoglobin 32.4 pg (25-34); Mean Corpuscular Hgb Conc 33.7 g/dL (32-36); Mean Corpuscular Volume 96.2 fL (80-100); Mean Platelet Volume 9.6 fL (7.4-10.4); Platelet Count 304 K/uL (130-400); RDW Coefficient of Variation 14.1 % (11.5-14.5); RDW Standard Deviation 49.7 fL (36.4-46.3); Red Blood Count 3.39 M/uL (4.2-5.4); White Blood Count 10.02 K/uL (4.8-10.8)
[2020-05-06 08:13] LABS: Partial Thromboplastin Ratio 2.5
[2020-05-06 08:20] LABS: Calcium 8.7 mg/dl (8.5-10.1); Creatinine Clr Calc Pharmacy 60.5 ml/min; Est GFR (African American) 71.5; Est GFR (Non-African American) 61.7; Magnesium 2.1 mg/dl (1.8-2.4); Potassium 4.2 mmol/L (3.5-5.1)
[2020-05-06 08:23] LABS: Partial Thromboplastin Time 69.5 Seconds (21.0-31.0)
[2020-05-06] MEDS: NICOTINE 21 MG/24 HR TDSY TD SCH (08:23)
[2020-05-06] MEDS: METOPROLOL TARTRATE 25 MG TAB PO SCH (08:24)
[2020-05-06] MEDS: ASPIRIN 81 MG ECTAB PO SCH (08:24)
[2020-05-06] MEDS ORDERED: CLOPIDOGREL BISULFATE 75 MG TAB PO ONE (09:12)
--- NOTE | 2020-05-06 09:18 | Cardiology Progress Note ---
Date of Service May 06, 2020 Assessment & Plan (1) Chest pain: (2) NSTEMI (non-ST elevated myocardial infarction): (3) Smoker: (4) Diabetes: The patient is less anxious today. She is alert and oriented. I had a lengthy discussion with her today and provided the results from her heart catheterization. Our recommendations are for evaluation by cardiothoracic surgery for open heart and coronary artery bypass. Unfortunately, the patient is not interested in having any surgeries. She wants to be discharged today. She understands the risks of not having surgery including and not limited to future myocardial infarction and possible . She wants medical management only. I will stop her heparin today. She will be started on Plavix in addition to aspirin. She is currently on metoprolol 25 mg twice daily which will be increased to 50 mg twice daily. She will also be started on atorvastatin. I will arrange follow-up after discharge. Admission and Anticipated Discharge Date Admission Date: May 04, 2020 Subjective The patient has had no additional chest pain since admission. She is alert and oriented today. Review of Systems Review of Systems: All systems reviewed & are unremarkable except as noted in HPI & below Nothing additional to add. Physical Exam Physical Exam: General: no acute distress and stated age Head: normocephalic, no masses, lesions, tenderness or abnormalities Eyes: conjunctiva are pink and non-injected, sclera clear Neck: supple, no adenopathy, no bruits, normal jugular venous pulse, no hepatojugular reflux Chest: normal shape and normal respiratory effort Lungs: clear to auscultation and percussion Cardiac Exam: - regular rate & rhythm, no murmurs gallops or rubs - normal S1, normal S2 Pulses: 2(+) throughout Abdomen: abdomen soft, non-tender, no abnormal masses and no hepatosplenomegaly Musculoskeletal: no gait disturbance, no joint inflammation, no deforming arthritis Extremities: no edema and no cyanosis, cath site looks good Neuro: grossly normal exam Results & Data ([facility]) Vital Signs (Past 12 Hours) Vital Signs Temp Pulse Pulse Resp BP Pulse Ox 05/06/20 07:44 37.1 C 83 18 120/69 97 05/06/20 05:12 36.6 C 77 17 108/64 97 05/05/20 23:22 37.1 C 82 20 99/74 L 96 05/05/20 22:20 89 Laboratory Results Laboratory Results - last 24 hr 05/05/20 05/05/20 05/06/20 11:14 14:04 00:27 WBC RBC Hgb Hct MCV MCH MCHC RDW Std Deviation RDW Coeff of Antonio Plt Count MPV APTT 28.8 41.4 H PTT Ratio 1.0 1.5 Sodium Potassium Chloride Carbon Dioxide Anion Gap BUN Creatinine Est Cr Clr Drug Dosing Est GFR ( Amer) Est GFR (Non-Af Amer) BUN/Creatinine Ratio Glucose Calcium Magnesium Troponin I 3.200 H* 05/06/20 05/06/20 05/06/20 07:40 07:40 07:40 WBC 10.02 RBC 3.39 L Hgb 11.0 L Hct 32.6 L MCV 96.2 MCH 32.4 MCHC 33.7 RDW Std Deviation 49.7 H RDW Coeff of Antonio 14.1 Plt Count 304 MPV 9.6 APTT 69.5 H* PTT Ratio 2.5 Sodium 139 Potassium 4.2 Chloride 110 H Carbon Dioxide 23 Anion Gap 7.0 BUN 18 Creatinine 0.97 Est Cr Clr Drug Dosing 60.5 Est GFR ( Amer) 71.5 Est GFR (Non-Af Amer) 61.7 BUN/Creatinine Ratio 18.0 Glucose 146 H Calcium 8.7 Magnesium 2.1 Troponin I Medications Administered Current Inpatient Medications Acetaminophen (Acetaminophen 325 Mg Tab) 650 mg PO Q4H PRN PRN Reason: Pain or Fever Stop: 06/03/20 22:24 Allopurinol (Allopurinol 100 Mg Tab) 200 mg PO [facility] Stop: 06/04/20 20:59 Last Admin: 05/05/20 20:29 Dose: 200 mg Documented by: Aspirin (Aspirin 81 Mg Ectab) 81 mg PO [facility] Stop: 06/04/20 08:59 Last Admin: 05/06/20 08:24 Dose: 81 mg Documented by: Clopidogrel Bisulfate (Clopidogrel Bisulfate 75 Mg Tab) 75 mg PO NOW ONE Stop: 05/06/20 09:13 Clopidogrel Bisulfate (Clopidogrel Bisulfate 75 Mg Tab) 75 mg PO [facility] Stop: 06/06/20 08:59 Lorazepam (Ativan) 0.5 mg in 1 mls @ 1 mls/min IV Q4H PRN PRN Reason: Anxiety/Agitation Stop: 06/03/20 20:33 Last Admin: 05/05/20 23:32 Dose: 1 mls/min Documented by: Promethazine HCl 12.5 mg/ (Sodium Chloride) 50.5 mls @ 202 mls/hr IV Q6H PRN PRN Reason: Nausea And Vomiting Stop: 06/03/20 22:24 Metoprolol Tartrate (Metoprolol Tartrate 25 Mg Tab) 25 mg PO BID [facility] Stop: 06/04/20 08:59 Last Admin: 05/06/20 08:24 Dose: 25 mg Documented by: Miscellaneous (Remove Nicoderm Patch) 1 ea N/A DAILY@0859 [facility] Stop: 06/04/20 08:58 Last Admin: 05/06/20 08:22 Dose: 1 ea Documented by: Morphine Sulfate (Morphine Sulfate 4 Mg/Ml 1 Ml Carp\Vial) 4 mg IV Q4H PRN PRN Reason: Pain Stop: 05/18/20 22:24 Nicotine (Nicotine 21 Mg/24 Hr Tdsy) 21 mg TD QAM [facility] Stop: 06/04/20 08:59 Last Admin: 05/06/20 08:23 Dose: 21 mg Documented by: Nitroglycerin (Nitroglycerin Sl 0.4 Mg/Tab Tab) 0.4 mg SL UD PRN PRN Reason: Chest Pain Stop: 06/03/20 22:24 Oxycodone HCl (Oxycodone Hcl Ir 5 Mg Tab (Immediate Release)) 5 mg PO Q4H PRN PRN Reason: Pain Stop: 05/18/20 22:24 (1) Chest pain Chest pain type: precordial pain Qualified Code(s): R07.2 - Precordial pain (2) Diabetes Diabetes mellitus type: type 2 Diabetes mellitus care home insulin use: without care home use Diabetes mellitus complication status: with circulatory complication
[2020-05-06] MEDS ORDERED: METOPROLOL TARTRATE 25 MG TAB PO ONE (09:30)
[2020-05-06] MEDS ORDERED: ATORVASTATIN 40 MG TAB PO SCH (09:30)
--- NOTE | 2020-05-06 12:01 | Hospitalist Progress Note ---
Date of Service May 06, 2020 Assessment & Plan (1) NSTEMI (non-ST elevated myocardial infarction): Situational hypertension Admitted to PCU Aspirin, beta-yolanda; IV heparin started on admission. TTE, Cardiology consult RE ACS Troponin increased from 1.2 to 3.6 morning after admission Echocardiogram obtained and shows normal LV chamber size with mild concentric LVH. Low normal LV systolic function EF 50 to 55%. Mild to moderate hypokinesis of the basal and mid inferior/inferior lateral jones, otherwise normal wall motion. Grade 1 diastolic dysfunction. No significant valvular pathology. Cardiology recommended cardiac cath Patient initially very hesitant, however after further discussion with her and her niece, her POA, patient agreed to proceed with cardiac cath Patient underwent cardiac cath yesterday, May 05, and was found to have severe three-vessel coronary artery disease, and open heart surgery and bypass was recommended. Despite long discussion of risks and benefits, patient does not wish to proceed with any surgical procedure. She wishes to be discharged home. Patient has several family members who did not have a good outcome and she strongly feels that she would not want to proceed with the surgery. She understands her options and is willing to take medications. Cardiology prescribed Plavix, aspirin, metoprolol, atorvastatin. These medications were sent to her pharmacy. She was also counseled on smoking cessation. Plan to follow-up with cardiology and primary care doctor. Hyperglycemia, diabetes mellitus A1c 6.6%, patient to follow-up as outpatient with PCP Lipid profile checked, total cholesterol 252, triglycerides 392, LDL 153, HDL 21 Anxiety/mood disorder, stable at home without any maintenance medications currently Anxiolytic PRN Ongoing tobacco use Nicotine patch Counseled patient on smoking cessation Chronic back pain status post surgery Currently no complaints, continue to monitor DVT prophylaxis. IV heparin DNR -reversed DNR for cardiac cath procedure, she wishes to be DNR after procedure Admission and Anticipated Discharge Date Admission Date: May 04, 2020 Subjective No acute events overnight. Patient is sitting up in bed, in no acute distress. She underwent cardiac cath yesterday, after long discussion, as she was very hesitant to proceed with the procedure. Cardiac cath showed severe three-vessel coronary artery disease, and open heart surgery and bypass was recommended. Patient was explained all the risks and benefits and does not wish to proceed with surgery. Medications were adjusted by cardiology, also cardiology follow-up is planned. In addition I provided smoking cessation counseling for the patient. She is currently sitting up in bed, alert and oriented answering questions appropriately. States she had bad experiences within her family, several family members underwent procedures like that and did not do well. She herself denies any chest pain, shortness of breath, dizziness, lightheadedness, abdominal pain, nausea or vomiting. At this moment she feels very strongly about not proceeding with any surgery. She is eager to go home. Review of Systems Review of Systems: All systems reviewed & are unremarkable except as noted in HPI & below Constitutional: no fever and no chills Respiratory: no cough and no dyspnea Cardiovascular: no chest pain and no palpitations Gastrointestinal: no abdominal pain, no nausea and no vomiting Physical Exam Physical Exam: GENERAL: obese female sitting up in bed, in no acute distress HEENT: Normocephalic, atraumatic, EOMI, [place] palpebral conjunctivae, no ptosis NECK : Supple, short neck, no tenderness CHEST : CTA, no wheezing, rhonchi or crackles HEART : RRR , no obvious murmurs ABDOMEN: Normal bowel sounds, obese, soft, some distention, nontender EXTREMITIES : No LE swelling/tenderness, moves extremities spontaneously SKIN: warm, dry NEURO/PSYCH : Alert and oriented x3, answering questions appropriately, somewhat anxious, no facial asymmetry, speech fluent, moves all 4 extremities spontaneously and without difficulty Results & Data Results & Data ([facility]) Vital Signs (Past 12 Hours) Vital Signs Temp Pulse Pulse Resp BP Pulse Ox 05/06/20 10:01 89 05/06/20 07:44 37.1 C 83 18 120/69 97 05/06/20 05:12 36.6 C 77 17 108/64 97 Laboratory Results 05/06/20 05/06/20 05/06/20 Range/Units 07:40 07:40 07:40 WBC 10.02 (4.8-10.8) K/uL RBC 3.39 L (4.2-5.4) M/uL Hgb 11.0 L (12.0-16.0) g/dL Hct 32.6 L (37-47) % MCV 96.2 (80-100) fL MCH 32.4 (25-34) pg MCHC 33.7 (32-36) g/dL RDW Std Deviation 49.7 H (36.4-46.3) fL RDW Coeff of Antonio 14.1 (11.5-14.5) % Plt Count 304 (130-400) K/uL MPV 9.6 (7.4-10.4) fL APTT 69.5 H* (21.0-31.0) Seconds PTT Ratio 2.5 Sodium 139 (136-145) mmol/L Potassium 4.2 (3.5-5.1) mmol/L Chloride 110 H (98-107) mmol/L Carbon Dioxide 23 (21-32) mmol/L Anion Gap 7.0 (3-11) BUN 18 (7-18) mg/dl Creatinine 0.97 (0.6-1.2) mg/dl Est Cr Clr Drug Dosing 60.5 ml/min Est GFR ( Amer) 71.5 Est GFR (Non-Af Amer) 61.7 BUN/Creatinine Ratio 18.0 (10-20) Glucose 146 H (70-99) mg/dl Calcium 8.7 (8.5-10.1) mg/dl Magnesium 2.1 (1.8-2.4) mg/dl 05/06/20 05/05/20 Range/Units 00:27 14:04 WBC (4.8-10.8) K/uL RBC (4.2-5.4) M/uL Hgb (12.0-16.0) g/dL Hct (37-47) % MCV (80-100) fL MCH (25-34) pg MCHC (32-36) g/dL RDW Std Deviation (36.4-46.3) fL RDW Coeff of Antonio (11.5-14.5) % Plt Count (130-400) K/uL MPV (7.4-10.4) fL APTT 41.4 H 28.8 (21.0-31.0) Seconds PTT Ratio 1.5 1.0 Sodium (136-145) mmol/L Potassium (3.5-5.1) mmol/L Chloride (98-107) mmol/L Carbon Dioxide (21-32) mmol/L Anion Gap (3-11) BUN (7-18) mg/dl Creatinine (0.6-1.2) mg/dl Est Cr Clr Drug Dosing ml/min Est GFR ( Amer) Est GFR (Non-Af Amer) BUN/Creatinine Ratio (10-20) Glucose (70-99) mg/dl Calcium (8.5-10.1) mg/dl Magnesium (1.8-2.4) mg/dl Medications Administered Current Inpatient Medications Acetaminophen (Acetaminophen 325 Mg Tab) 650 mg PO Q4H PRN PRN Reason: Pain or Fever Stop: 06/03/20 22:24 Allopurinol (Allopurinol 100 Mg Tab) 200 mg PO [facility] Stop: 06/04/20 20:59 Last Admin: 05/05/20 20:29 Dose: 200 mg Documented by: Aspirin (Aspirin 81 Mg Ectab) 81 mg PO [facility] Stop: 06/04/20 08:59 Last Admin: 05/06/20 08:24 Dose: 81 mg Documented by: Atorvastatin Calcium (Atorvastatin 40 Mg Tab) 40 mg PO [facility] Stop: 06/05/20 09:29 Last Admin: 05/06/20 09:55 Dose: 40 mg Documented by: Clopidogrel Bisulfate (Clopidogrel Bisulfate 75 Mg Tab) 75 mg PO [facility] Stop: 06/06/20 08:59 Lorazepam (Ativan) 0.5 mg in 1 mls @ 1 mls/min IV Q4H PRN PRN Reason: Anxiety/Agitation Stop: 06/03/20 20:33 Last Admin: 05/05/20 23:32 Dose: 1 mls/min Documented by: Promethazine HCl 12.5 mg/ (Sodium Chloride) 50.5 mls @ 202 mls/hr IV Q6H PRN PRN Reason: Nausea And Vomiting Stop: 06/03/20 22:24 Metoprolol Tartrate (Metoprolol Tartrate 50 Mg Tab) 50 mg PO BID [facility] Stop: 06/05/20 20:59 Miscellaneous (Remove Nicoderm Patch) 1 ea N/A DAILY@59 [facility] Stop: 06/04/20 08:58 Last Admin: 05/06/20 08:22 Dose: 1 ea Documented by: Morphine Sulfate (Morphine Sulfate 4 Mg/Ml 1 Ml Carp\Vial) 4 mg IV Q4H PRN PRN Reason: Pain Stop: 05/18/20 22:24 Nicotine (Nicotine 21 Mg/24 Hr Tdsy) 21 mg TD [facility] Stop: 06/04/20 08:59 Last Admin: 05/06/20 08:23 Dose: 21 mg Documented by: Nitroglycerin (Nitroglycerin Sl 0.4 Mg/Tab Tab) 0.4 mg SL UD PRN PRN Reason: Chest Pain Stop: 06/03/20 22:24 Oxycodone HCl (Oxycodone Hcl Ir 5 Mg Tab (Immediate Release)) 5 mg PO Q4H PRN PRN Reason: Pain Stop: 05/18/20 22:24
--- NOTE | 2020-05-06 12:24 | Discharge Summary ---
Date of Service May 06, 2020 Admission HPI Per Admitting Provider History obtained from patient and records. Medical history significant for chronic back pain status post surgery, anxiety/mood disorder, gout, ongoing tobacco abuse. Last confinement June 2013 under Orthopedics service for elective back surgery. This afternoon, patient experienced chest discomfort described as heavy and burning but different from reflux while waiting in the car. Some shortness of breath and diaphoreses. Chest discomfort not affected by breathing. No prior episodes. No unusual stress at home. Patient currently helping partner move from [place] to [facility]. Patient took home aspirin. Chest pain later relieved by home Vicodin Rx. Patient consulted local urgent care center. Patient brought to ER by EMS after being notified by urgent care center. Patient currently comfortable at the ER. Initially hesitant to stay for confinement. Second troponin noted to be 1.120. 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 Admission Exam Per Admitting Provider GENERAL: Comfortable, obese, anxious, looks younger for stated age, no r espiratory distress SKIN: Normal color, warm HEENT: [place] palpebral conjunctivae, no ptosis, dry buccal mucosa NECK : Supple, short neck, no tenderness CHEST : CTA, no tenderness HEART : Tachycardic , no obvious murmurs ABDOMEN: Some distention, nontender EXTREMITIES : No LE swelling/tenderness, no other conspicuous deformities noted NEUROLOGIC : Coherent, no facial asymmetry, no other gross focality Principal Diagnosis NSTEMI Severe three-vessel coronary artery disease Hyperglycemia, hemoglobin A1c 6.6%, diabetes mellitus type 2 Discharge Exam GENERAL: obese female sitting up in bed, in no acute distress HEENT: Normocephalic, atraumatic, EOMI, [place] palpebral conjunctivae, no ptosis NECK : Supple, short neck, no tenderness CHEST : CTA, no wheezing, rhonchi or crackles HEART : RRR , no obvious murmurs ABDOMEN: Normal bowel sounds, obese, soft, some distention, nontender EXTREMITIES : No LE swelling/tenderness, moves extremities spontaneously SKIN: warm, dry NEURO/PSYCH : Alert and oriented x3, answering questions appropriately, somewhat anxious, no facial asymmetry, speech fluent, moves all 4 extremities spontaneously and without difficulty Discharge Data Allergies Allergy/AdvReac Type Severity Reaction Status Date / Time No Known Allergies Allergy Unknown Verified 05/04/20 19:50 Consultations 05/04/20 19:31 ED Decision to Admit Stat 05/04/20 22:25 Consult Cardiology Routine Procedures Performed Operation Date: 05/05/20 09:45 Actual Procedures p Cath, Left with Cors and Vent - Lincoln Beltran DO s Cineradiography w/Routine Exam - Lincoln Beltran DO Ordered Studies 05/05/20 09:58 CL Cath Imgs for PACS use only Routine Hospital Course (1) NSTEMI (non-ST elevated myocardial infarction): Situational hypertension Admitted to PCU Aspirin, beta-yolanda; IV heparin started on admission. TTE, Cardiology consult RE ACS Troponin increased from 1.2 to 3.6 morning after admission Echocardiogram obtained and shows normal LV chamber size with mild concentric LVH. Low normal LV systolic function EF 50 to 55%. Mild to moderate hypokinesis of the basal and mid inferior/inferior lateral jones, otherwise normal wall motion. Grade 1 diastolic dysfunction. No significant valvular pathology. Cardiology recommended cardiac cath Patient initially very hesitant, however after further discussion with her and her niece, her POA, patient agreed to proceed with cardiac cath Patient underwent cardiac cath yesterday, May 05, and was found to have severe three-vessel coronary artery disease, and open heart surgery and bypass was recommended. Despite long discussion of risks and benefits, patient does not wish to proceed with any surgical procedure. She wishes to be discharged home. Patient has several family members who did not have a good outcome and she strongly feels that she would not want to proceed with the surgery. She understands her options and is willing to take medications. Cardiology prescribed Plavix, aspirin, metoprolol, atorvastatin. These medications were sent to her pharmacy. She was also counseled on smoking cessation. Plan to follow-up with cardiology and primary care doctor. Hyperglycemia, diabetes mellitus A1c 6.6%, patient to follow-up as outpatient with PCP Lipid profile checked, total cholesterol 252, triglycerides 392, LDL 153, HDL 21 Anxiety/mood disorder, stable at home without any maintenance medications currently Anxiolytic PRN Ongoing tobacco use Nicotine patch Counseled patient on smoking cessation Recommend calling [phone] quit now after discharge Chronic back pain status post surgery Currently no complaints, continue to monitor Recommend Tylenol and lidocaine patches Total Time Total Time Spent Total Time Spent (In Minutes): 50 Total Time Includes: Examination of the Patient, Discharge Planning, Medication Reconciliation and Communication With Other Providers Discharge Plan Discharge Items Patient Disposition: Home - Self-Care Reason For Visit: CP Discharge Diagnosis: NSTEMI severe three-vessel coronary artery disease Hyperglycemia, hemoglobin A1c 6.6%, diabetes mellitus type 2 Activity: Per Instructions section Non-emergency contact: Primary Care Provider and Research Executive Call non-emergency contact if: you have any medication questions and your symptoms worsen Follow-up/Referrals: Mauricio Body [Primary Care Provider] - Diet: Carb Consistent or DM2 and Heart Healthy Addtl Attending Provider Instructions: You were diagnosed with severe three-vessel coronary artery disease and it is recommended that you have open heart surgery and bypass. There were new medications prescribed to you by your ethics officer, please start taking aspirin, Plavix, atorvastatin, and metoprolol as prescribed. These medications were sent to your pharmacy. It is strongly recommended that you quit smoking. Recommend to call [employer] smoke cessation line. Recommend that you do not take NSAIDs such as Aleve, Motrin on regular basis. Instead take Tylenol 1000 mg 3 times a day, max daily dose is 3000 mg a day. You can apply lidocaine patches on your back for back pain, these can be obtained [id number], often under the name Salonpas. Follow-up with your primary care doctor within 1 week. And follow-up with your ethics officer, this appointment will be scheduled for you. Pending Studies at Discharge: No Stand-Alone Forms: My [facility] Conductrics, Smoking Cessation Medications and DC Order Prescriptions: New nicotine [Nicoderm CQ] 21 mg/24 hr Patch 24 Hour 21 mg transdermal QAM 7 Days RF: 0 clopidogrel 75 mg Tablet 75 mg PO QAM 30 Days Qty: 30 RF: 0 atorvastatin 40 mg Tablet 40 mg PO QAM 30 Days Qty: 30 RF: 0 metoprolol tartrate 50 mg Tablet 50 mg PO BID 30 Days Qty: 60 RF: 0 nitroglycerin [Nitrostat] 0.4 mg Tablet, Sublingual 0.4 mg sublingual UD PRN (Reason: chest pain) Qty: 7 RF: 0 acetaminophen 325 mg Tablet 650 mg PO Q4H PRN (Reason: pain) 30 Days Qty: 30 RF: 0 aspirin 81 mg Tablet,Delayed Release (Dr/Ec) 81 mg PO QAM 30 Days Qty: 30 RF: 0 Continued allopurinol 100 mg tablet 200 mg PO HS RF: 0 Discontinued diclofenac sodium 75 mg Tablet,Delayed Release (Dr/Ec) 150 mg PO HS RF: 0 ibuprofen [Advil] 200 mg Tablet 200 mg PO Q6H PRN (Reason: Pain) RF: 0 Discharge Orders: Discharge Order (Routine); Ordered 05/06/20 Ordered By: Ever Lee/Other Patient Handouts: Healthy Meals for Diabetes, Risk Factors for Heart Disease, Health Effects of Smoking, Heart Attack Dc, Heart Disease Women, Heart Disease Women Tips for Changes, Diabetes: Meal Planning, Heart Attack: Leaving the Hospital, Eating Heart-Healthy Foods, Smoking and Diabetes, Atorvastatin tablets, Clopidogrel tablets, Metoprolol tablets, Aspirin ASA oral tablets, A1C Admission Data Admit Date/Time: 05/04/20 22:31 Attending Provider: Ever Luther Admit Provider: Catrachito Ortiz Primary Care Provider: Mauricio Boyd Other Providers: Catrachito Ortiz ; Freddy Maynard ; Mauricio Hodges ; Ac Strickland ; Davonte Kovacs ; Lincoln Beltran ; Atul Jaffe ; Tayler Noel ; Ronit Castillo ; Al Bruno
[2020-05-06] MEDS ORDERED: METOPROLOL TARTRATE 50 MG TAB PO SCH (21:00)
[2020-05-07] MEDS ORDERED: CLOPIDOGREL BISULFATE 75 MG TAB PO SCH (09:00)
== END 2020-05-06 15:02 | disposition home or self-care (01) | DRG 282 ==
LOC: 2S 18:15 → ED 18:15 → 2S 21:50